=== PATIENT | female | born 1980 | race Caucasian/White ===

== ENCOUNTER 2019-01-24 23:45 | Emergency (ER) | payer SELFPAY ==
[~2019-01-24] VITALS: Ht 160 cm; Wt 54.7 kg
[2019-01-25 00:04] VITALS: Ht 160 cm; Wt 54.7 kg
[2019-01-25] MEDS ORDERED: CLIN300C10 PO (01:56)
[2019-01-25] MEDS ORDERED: METR500T PO (01:56)
[2019-01-25 02:20] VITALS: BP 144/77; PULSE 86; RESP 20
--- NOTE | 2019-01-27 14:34 | ERD ---
ER Documentation Chief Complaint Chief Complaint SCABBED WOUND ON R LEG AND L ARM X'S 3 DAYS; HX OF MRSA HPI 38-year-old female with no significant past medical history presenting to the em ergency department complaints of wounds with redness to her right leg, left arm and her scalp intermittently for the past 3 days. Overall symptoms have worsened. Associated symptoms include pain which is moderate in severity. She states she has a history of MRSA in the past. She denies any fevers, chills, or other symptoms at this time. Patient denies any recent IV drug use. ROS All systems reviewed and are negative except as per history of present illness. Medications Home Meds Active Scripts Clindamycin Hcl* (Clindamycin Hcl*) 300 Mg Capsule, 300 MG PO TID for 10 Days, CAP Prov:ISAAK SANCHEZ PA-C 01/25/19 Metronidazole* (Flagyl*) 500 Mg Tablet, 500 MG PO TID for 7 Days, TAB Prov:ISAAK SANCHEZ PA-C 01/25/19 Allergies Allergies: Coded Allergies: sulfamethoxazole (Verified Allergy, Unknown, 01/25/19) trimethoprim (Verified Allergy, Unknown, 01/25/19) PMhx/Soc History of Surgery: Yes (R ankle, L knee, Bilat breast) Anesthesia Reaction: No Hx Neurological Disorder: No Hx Respiratory Disorders: No Hx Cardiac Disorders: No Hx Psychiatric Problems: No Hx Miscellaneous Medical Probl: No Hx Alcohol Use: Yes (Quit 1995) Hx Substance Use: No Hx Tobacco Use: No Smoking Status: Never smoker FmHx Family History: No diabetes Physical Exam Vitals Vital Signs Date Temp Pulse Resp B/P (MAP) Pulse Ox O2 O2 Flow FiO2 Time Delivery Rate 01/25/19 98.0 86 20 144/77 99 Room Air 02:20 (99) 01/25/19 97.9 90 20 181/91 99 00:04 (121) Physical Exam Const: No acute distress Head: Atraumatic Eyes: Normal Conjunctiva ENT: Normal External Ears, Nose and Mouth. Neck: Full range of motion. No meningismus. Resp: Clear to auscultation bilaterally Cardio: Regular rate and rhythm, no murmurs Skin: There is localized area of erythema to the right lower extremity with centralized pustule noted. There is no crepitus on palpation. No lymphatic streaking. There is an abscess which is actively draining to the posterior as pect of the left upper extremity with mild surrounding erythema. There is a crusting lesion noted to the scalp with mild surrounding erythema and no discharge. Back: No midline or flank tenderness Ext: No cyanosis, or edema Neur: Awake and alert Psych: Normal Mood and Affect Procedures/MDM 38-year-old female resenting to the emergency department with signs and symptoms most consistent with cellulitis of the right lower extremity in the left upper extremity. No indication for incision and drainage at this time as an abscess of the left upper extremity was draining on examination. Patient's vital signs are stable and she is afebrile. She is nontoxic and well-appearing. She is stable and appropriate for outpatient management with a prescription for clindamycin and Flagyl. I discussed this case with attending ED physician, Dr. Isaak Brown who is in agreement and recommended outpatient management. Patient was advised to return to the department immediately for any new or worsening or concerning symptoms. She was otherwise in agreement with the diagnosis, plan, need for follow-up, and return precautions. Patient's blood pressure was elevated (>120/80) but appears stable without evidence of hypertension emergency or urgency. The patient is to follow-up and pursue outpatient monitoring and therapy with their primary care physician within 1 week and return immediately if they have any new, worsening, or concerning symptoms. Disclaimer: Inadvertent spelling and grammatical errors are likely due to EHR/dictation software use and do not reflect on the overall quality of patient care. Also, please note that the electronic time recorded on this note does not necessarily reflect the actual time of the patient encounter. Departure Diagnosis: Primary Impression: Cellulitis Condition: Fair Patient Instructions: Cellulitis Referrals: [facility] YOU HAVE RECEIVED A MEDICAL SCREENING EXAM AND THE RESULTS INDICATE THAT YOU DO NOT HAVE A CONDITION THAT REQUIRES URGENT TREATMENT IN THE EMERGENCY DEPARTMENT. FURTHER EVALUATION AND TREATMENT OF YOUR CONDITION CAN WAIT UNTIL YOU ARE SEEN IN YOUR DOCTORS OFFICE WITHIN THE NEXT 1-2 DAYS. IT IS YOUR RESPONSIBILITY TO MAKE AN APPOINTMENT FOR FOLOW-UP CARE. IF YOU HAVE A PRIMARY DOCTOR --you should call your primary doctor and schedule an appointment IF YOU DO NOT HAVE A PRIMARY DOCTOR YOU CAN CALL OUR PHYSICIAN REFERRAL HOTLINE AT IF YOU CAN NOT AFFORD TO SEE A PHYSICIAN YOU CAN CHOSE FROM THE FOLLOWING [facility] [address] [facility] [address] [facility] [address] [facility] [address] [facility] [facility] [phone] [address] [facility]. [facility] [address] Additional Instructions: Return to this facility in 2 DAYS for a follow-up exam.Return sooner if your condition worsens. Call your primary care doctor TOMORROW for an appointment during the next 1-2 days.See the doctor sooner or return here if your condition worsens before your appointment time. ISAAK SANCHEZ PA-C January 27, 2019 14:34
== END 2019-01-25 02:20 | disposition home or self-care (01) ==
LOC: FTE 23:45
DX: L03.115 Cellulitis of right lower limb (principal); L03.114 Cellulitis of left upper limb
CPT/HCPCS: 99283